=== PATIENT | female | born 1955 | race Caucasian/White ===

== ENCOUNTER 2019-05-16 12:26 | Emergency (ER) | payer OTHER ==
[~2019-05-16] VITALS: Ht 149.9 cm; Wt 64.0 kg
[2019-05-16] MEDS ORDERED: METFORMIN HCL500 M2 PO (13:05)
[2019-05-16] MEDS ORDERED: KRISTALOSE20 GM PO (19:03)
[2019-05-16] MEDS ORDERED: ANUSOL-HC25 MG RECTAL (19:03)
== END 2019-05-16 19:33 | disposition home or self-care (01) ==
LOC: ER 12:26
DX: K64.4 Residual hemorrhoidal skin tags (principal)

== ENCOUNTER → 2021-03-28 | Emergency (ER) | payer OTHER ==
[~2021-03-28] VITALS: Ht 149.9 cm; Wt 59.0 kg
[~2021-03-28] MED LIST: AMOX-CLAV 875-1 EAC1 PO; ANUSOL-HC25 MG RECTAL; ECOTRIN81 MG; KRISTALOSE20 GM PO; METFORMIN HCL500 M2 PO; ZETIA10 MG PO
== END | disposition home or self-care (01) ==
LOC: ER 13:20
DX: T25.221A Burn of second degree of right foot, initial encounter (principal); X11.8XXA Contact with other hot tap-water, initial encounter; Y93.89 Activity, other specified; Y92.89 Other specified places as the place of occurrence of the external cause; Y99.8 Other external cause status

== ENCOUNTER 2025-07-14 23:35 | Emergency (ER) | payer OTHER ==
[~2025-07-14] VITALS: Ht 147.3 cm; Wt 59.0 kg
[2025-07-14] MEDS ORDERED: MICARDIS80 MG PO (23:52)
[2025-07-14] MEDS ORDERED: BISOPROLOL FUMAR5 MG PO (23:52)
[2025-07-15 01:07] LABS: BASO % 0.7 % (0.1-1.2); EOS # 0.16 (0.04-0.54); EOS % 2.9 % (0.7-7.0); LYMPH # 2.06 (1.18-3.74); LYMPH % 37.8 % (19.3-53.1); MEAN PLATELET VOLUME 10.90 fl (9.4-12.4); MONO # 0.52 (0.24-0.82); MONO % 9.5 % (4.7-12.5); NEUT # 2.67 (1.56-6.13); NEUT % 49.1 % (34.0-71.1); RED CELL DISTRIBUTION WIDTH 12.9 % (11.6-14.4)
[2025-07-15 01:12] LABS: ERYTHROCYTE SEDIMENTATION RATE 31 mm/hr (0-30)
[2025-07-15 01:46] LABS: ALT/SGPT 20.0 U/L (12-78); AST/SGOT 19.0 U/L (15-37); BILIRUBIN TOTAL 0.41 mg/dL (0.3-1.2); BUN CREA RATIO 22.0 (7.0-25.0); CREATININE SERUM 0.64 mg/dL (0.55-1.02); GFR 91.74; GLOBULINA 3.7 G/DL (2.4-3.5); GLUCOSE FASTING 116.0 mg/dL (65-100); OSMOLALITY SERUM 290.0 MOSM/KG (275-295)
[2025-07-15] MEDS ORDERED: CEPHALEXIN500 MG PO (09:07)
== END 2025-07-15 12:37 | disposition home or self-care (01) ==
LOC: ER 23:35
PROVIDERS: Preventive Medicine Public Health & General Preventive Medicine
DX: L03.116 Cellulitis of left lower limb (principal); E11.9 Type 2 diabetes mellitus without complications; Z79.84 Long term (current) use of oral hypoglycemic drugs; I10 Essential (primary) hypertension; Z88.8 Allergy status to other drugs, medicaments and biological substances